=== PATIENT | female | born 1975 | race Two or more races ===

== ENCOUNTER 2023-03-31 07:09 | Day surgery (SDC) | payer OTHER ==
[2023-03-30 10:39] LABS: PH,URINE 5.5 (5.0-8.0); URINE APPEARANCE Clear; URINE BILIRRUBIN Negative (NEGATIVE); URINE BLOOD Negative; URINE COLOR Yellow; URINE GLUCOSE Negative (NEGATIVE); URINE LEUKOCYTE Negative; URINE NITRATE Negative; URINE PROTEIN Negative (NEGATIVE); URINE UROBILINOGEN 0.2 E.U./dl
[2023-03-30 10:43] LABS: URINE EPITHELIAL CELLS 21.9 uL (0.0-38.8); URINE RBC 10.6 uL (0.0-20.8); URINE WBC 8.6 uL (0.0-23.2)
[2023-03-30 10:49] LABS: HEMATOCRIT 40.1 % (36.0-45.00); HEMOGLOBIN 13.6 g/dL (12.0-15.00); MEAN CORPUSCULAR HEMOGLOBIN 33.2 pg (27.00-32.0); MEAN CORPUSCULAR HGB CONC 33.9 g/dl (32.0-36.0); PLATELET COUNT 267 K/uL (150-450); RED BLOOD COUNT 4.09 M/uL (4.00-6.00)
[2023-03-30 11:12] LABS: PARTIAL THROMBOPLASTIN TIME 34.7 SECONDS (22.0-34.0); PROTHROMBIN TIME 10.5 SECONDS (9.0-11.5)
[2023-03-30 11:18] LABS: ALBUMIN 4.1 gm/dL (3.4-5.0); BILIRUBIN TOTAL 0.28 mg/dL (0.3-1.2); CALCIUM 9.5 mg/dL (8.5-10.1); CREATININE SERUM 1.1 mg/dL (0.55-1.02); GFR 53.01; GLOBULINA 3.2 G/DL (2.4-3.5); TOTAL PROTEIN 7.3 gm/dL (6.4-8.2)
[~2023-03-31 07:09] MED LIST: GABAPENTIN 800 MG; KLONOPIN 1 MG; LAMICTAL 200 MG; TOPIRAMATE
== END 2023-03-31 14:15 | disposition home or self-care (01) ==
LOC: CIR.AMB 07:09
PROVIDERS: ATTEND Surgery
DX: N62 Hypertrophy of breast (principal); Z88.0 Allergy status to penicillin; Z20.822 Contact with and (suspected) exposure to COVID-19; N60.22 Fibroadenosis of left breast; D18.09 Hemangioma of other sites